=== PATIENT | female | born 1975 | race Caucasian/White ===

== ENCOUNTER 2016-10-26 15:27 | Emergency (ER) | payer OTHER ==
[2016-10-26 15:34] VITALS: BP 141/64; PULSE 67; TEMP 98.4; BMI 39.6
--- NOTE | 2016-10-26 16:08 | PDOC ---
History of Present Illness - General Chief Complaint: Rash Stated Complaint: RASH Time Seen by Provider: 10/26/16 15:43 - History of Present Illness Initial Comments: 10/26/16 16:45 CHIEF COMPLAINT: rash HISTORY OF PRESENT ILLNESS: 41 yo F with no significant PMH presents to ED with rash to upper body x 3 weeks. Patient was prescribed Medrol dose pack and Dolores and has been compliant everyday for the last week with no relief. Patient describes rash as itchy but not painfl. She denies any new medication or foods prior to onset of the rash. She denies any fever, nausea, vomiting, diarrhea, cough, swelling of throat, mouth, lips, tongue, or any shortness of breath or difficulty breathing. She does report itchy red eyes that started yesterday. No recent travel or sick contacts. PAST MEDICAL HISTORY: Denies past medical history FAMILY HISTORY: Denies SOCIAL HISTORY: Denies tobacco, alcohol, illicit drug use. SURGICAL HISTORY: Denies ALLERGIES: No known drug allergies REVIEW OF SYSTEMS General/Constitutional: Denies fever or chills. Denies weakness, weight change. HEENT: Denies change in vision. Denies ear pain or discharge. Denies sore throat. Cardiovascular: Denies chest pain or shortness of breath. Respiratory: Denies cough, wheezing, or hemoptysis. Gastrointestinal: Denies nausea, vomiting, diarrhea or constipation. Denies rectal bleeding. Genitourinary: Denies dysuria, frequency, or change in urination. Musculoskeletal: Denies joint or muscle swelling or pain. Denies neck or back pain. Skin and breasts: Rash to body x 3 weeks. PHYSICAL EXAM General Appearance: Well-appearing, appropriately dressed. No apparent distress. HEENT: EOMI, PERRLA, normal ENT inspection, normal voice, TMs normal, pharynx normal. No conjunctival pallor. No photophobia, scleral icterus. Respiratory/Chest: Lungs CTAB. Cardiovascular: RRR. S1, S2. Musculoskeletal/Extremities: Normal inspection. FROM of all extremities, normal capillary refill. Pelvis Stable. No CVA tenderness. No tenderness to extremities, pedal edema, swelling, erythema or deformity. Integumentary: Generalized erythematous, vesicular, pruritic rash to torso, arms , face. Appropriate color, dry, warm. No cyanosis, erythema, jaundice or rash Neurologic: social work therapist II-XII intact. Fully oriented, alert. Appropriate mood/affect. Motor strength 5/5. No appreciable EOM palsy, facial droop or sensory deficit. Past History - Past Medical History Allergies/Adverse Reactions: Allergies Allergy/AdvReac Type Severity Reaction Status Date / Time No Known Allergies Allergy Verified 10/26/16 15:29 Home Medications: Ambulatory Orders NK [No Known Home Medication] 10/26/16 Other medical history: NONE - Surgical History Cholecystectomy: Yes - Psycho/Social/Smoking Cessation Hx Anxiety: No Suicidal Ideation: No Smoking History: Never smoked Have you smoked in the past 12 months: No Information on smoking cessation initiated: No Hx Alcohol Use: No Drug/Substance Use Hx: No Substance Use Type: None *Physical Exam - Vital Signs Last Vital Signs Temp Pulse Resp BP Pulse Ox 98.4 F 67 18 141/64 100 10/26/16 15:31 10/26/16 15:31 10/26/16 15:31 10/26/16 15:31 10/26/16 15:31 *DC/Admit/Observation/Transfer Diagnosis at time of Disposition: Idiopathic [id number] - Discharge Dispostion Admit: No - Referrals Referrals: Trixie Navarro MD [Staff Physician] - - Patient Instructions Printed Discharge Instructions: DI for Hives Additional Instructions: As discussed, you need to follow up with dermatology tomorrow for further evaluation of your rash. Continue taking the medications that were prescribed to you previously. If you experience any swelling of the mouth, throat, lips, tongue, or have any difficulty breathing, please return to the ER immediately. Luz Maria se prescott discutido, es necesario hacer un seguimiento con la dermatologa ma prabha para clare evaluacin ms detallada de freire sarpullido. Contine tomando los medicamentos que le fueron recetados previamente. Si experimenta hinchazn de la boca, la garganta, los labios, la lengua o si tiene alguna dificultad para respirar, por favor regrese inmediatamente a la desirae de emergencias.
== END 2016-10-26 16:13 | disposition home or self-care (01) ==
LOC: JERFT 15:27
DX: T78.3XXA Angioneurotic edema, initial encounter (principal)
CPT/HCPCS: 99281-25